=== PATIENT | female | born 1990 | race Caucasian/White ===

== ENCOUNTER → 2020-05-10 | Outpatient (CLI) | payer OTHER ==
[~2020-05-10] MED LIST: LOVENOX SY30 MG/0.3 PO; SUBOXONE 8 MG-1 EACH SL
== END ==
LOC: KOH-I 05-03 10:30
DX: R10.9 Unspecified abdominal pain (principal); N20.0 Calculus of kidney
CPT/HCPCS: 74150

== ENCOUNTER 2021-06-17 10:01 | Emergency (ER) | payer OTHER ==
[2021-06-17] MEDS ORDERED: BENADRYL25 MG PO (10:24)
== END 2021-06-17 11:35 | disposition home or self-care (01) ==
LOC: ER1 10:01
DX: L50.9 Urticaria, unspecified (principal)
CPT/HCPCS: 99282; J2930